=== PATIENT | female | born 1950 | race Caucasian/White ===

== ENCOUNTER 2018-02-03 14:07 | Emergency (ER) | payer MEDICARE ==
[2018-02-03 16:33] LABS: #Basophils 0.1 thou/uL (0.0-0.2); #Eosinphils 0.1 thou/uL (0.0-0.7); #Lymphocytes 2.4 thou/uL (1.20-3.40); #Monocytes 0.5 thou/uL (0.11-0.59); %Basophils 0.8 % (0.0-1.0); %Eosinophils 0.6 % (0.0-10.0); %Lymphocytes 26.4 % (21.0-51.0); %Monocytes 5.6 % (0.0-10.0); %Neutrophils 66.7 % (42.0-75.0); Hemoglobin 13.3 g/dL (12.0-16.0); Mean Corpuscular Hemoglobin 31.1 pg (27.0-31.0); Mean Corpuscular Volume 94.1 fl (81.0-99.0); Mean Platelet Volume 7.1 fL (7.4-10.4); Platelet Count 221 thou/uL (130-400); RBC Distribution Width 12.7 % (11.5-14.5); Red Blood Cell (RBC) Count 4.28 mill/uL (4.20-5.40)
[2018-02-03 16:46] LABS: ALT (SGPT) 10 U/L (8-55); AST (SGOT) 17 U/L (5-34); Albumin 3.9 g/dL (3.4-4.8); Alkaline Phosphatase 97 U/L (40-150); Anion Gap 14 mmol/L (10-20); BUN (Urea Nitrogen) 9 mg/dL (9.8-20.1); Bilirubin, Total 0.5 mg/dL (0.2-1.2); Calc. Creatinine Clearance 0 mL/min (70-130); Calcium 9.4 mg/dL (7.8-10.44); Carbon Dioxide 24 mmol/L (23-31); Chloride 105 mmol/L (98-107); Estimated GFR-MDRD 74; Globulin 3.5 g/dL (2.4-3.5); Glucose 82 mg/dL (80-115); Potassium 3.6 mmol/L (3.5-5.1); Protein, Total 7.4 g/dL (6.0-8.3); Sodium 139 mmol/L (136-145)
--- NOTE | 2018-02-03 19:20 | CT ---
CT ABDOMEN AND PELVIS WITH CONTRAST: 02/03/18 Multiple axial tomograms obtained through the abdomen and pelvis with IV enhancement. HISTORY: Hematochezia. Abdominal pain. Lung bases are clear. The liver, spleen, and pancreas appear unremarkable. Stomach and duodenum unremarkable. Adrenal glands and kidneys unremarkable. No hydronephrosis. Urinary bladder is contracted and not wel l evaluated. Small bowel loops appear normal. Appendix appears normal. Stool and gas throughout the c olon. Scattered diverticula. No definite CT evidence of diverticulitis. On coronal images, there is a focal area of luminal narrowing in the mid transverse colon slightly to the left of midline which has the appearance of an apple core type lesion on coronal images. This ma y be asymmetric peristalsis. Recommend elective colonoscopy. Aorta is normal caliber. No adenopathy identified. IMPRESSION: 1. Question focal luminal narrowing in the transverse colon best appreciated on coronal images. Suggest elective colonoscopy to clear this region. 2. There is scattered diverticula with diverticulosis at the sigmoid. No definite CT evidence of diverticulitis. 3. Otherwise no acute process identified. POS: [facility]IR
[2018-02-03 19:33] LABS: Bilirubin Negative (Negative); Blood, Urine Negative (Negative); Clarity CLEAR (Clear); Glucose, Urine (Dipstick) Negative (Negative); Leukocyte Negative (Negative); Nitrite Negative (Negative); Protein, Urine (Dipstick) Negative (Neg-Trace); Specific Gravity, Urine 1.012 (1.002-1.036); Urobilinogen 0.2 mg/dL (0.2-1.0)
== END 2018-02-03 19:33 | disposition home or self-care (01) ==
LOC: ERS 14:07
DX: K92.2 Gastrointestinal hemorrhage, unspecified (principal); K21.9 Gastro-esophageal reflux disease without esophagitis; E78.5 Hyperlipidemia, unspecified; I10 Essential (primary) hypertension; Z79.899 Other long term (current) drug therapy
CPT/HCPCS: 36415; 74177; 82274; 96360

== ENCOUNTER 2022-04-25 10:14 | Emergency (ER) | payer OTHER, MEDICARE ==
[2022-04-25] MEDS ORDERED: HYDROcodone/Acetaminophen 5/325 mg Tablet ONE (11:20)
[2022-04-25] MEDS ORDERED: Morphine 4 MG/ML VIAL ONE (12:48)
== END 2022-04-25 13:32 | disposition home or self-care (01) ==
LOC: ERS 10:14
DX: S09.90XA Unspecified injury of head, initial encounter (principal); S70.02XA Contusion of left hip, initial encounter; I10 Essential (primary) hypertension; K21.9 Gastro-esophageal reflux disease without esophagitis; E78.5 Hyperlipidemia, unspecified; E78.00 Pure hypercholesterolemia, unspecified; W18.09XA Striking against other object with subsequent fall, initial encounter; Y93.01 Activity, walking, marching and hiking; Y92.512 Supermarket, store or market as the place of occurrence of the external cause; Z79.899 Other long term (current) drug therapy
CPT/HCPCS: 70450; 71045; 72125; 72170; 72192; 94760; 96372; J2270

== ENCOUNTER 2023-12-09 13:53 | Outpatient (CLI) | payer MEDICARE | END 2023-12-09 13:54 | disposition home or self-care (01) | LOC: RAD 13:53 | PROVIDERS: ATTEND Family Medicine | DX: M79.641 Pain in right hand (principal); M19.041 Primary osteoarthritis, right hand ==

== ENCOUNTER 2025-08-09 08:19 | Outpatient (CLI) | payer MEDICARE | END 2025-08-09 08:20 | disposition home or self-care (01) | LOC: RAD 08:19 | PROVIDERS: ATTEND Internal Medicine Critical Care Medicine | DX: R06.00 Dyspnea, unspecified (principal) | CPT/HCPCS: 71046 ==